=== PATIENT | female | born 1970 | race American Indian/Alaskan Native ===

== ENCOUNTER 2018-10-18 16:02 | Emergency (ER) | payer MEDICARE ==
[2018-10-18 18:46] LABS: Basophils # (Auto) 0.1 K/mm3 (0.0-0.1); Basophils % (Auto) 0.7 % (0.0-1.8); Eosinophils # (Auto) 0.1 K/mm3 (0.0-0.4); Eosinophils % (Auto) 1.6 % (0.0-4.3); Hematocrit 35.8 % (30.3-42.9); Hemoglobin 11.6 gm/dl (10.1-14.3); Lymphocytes # (Auto) 1.7 K/mm3 (1.2-5.4); Lymphocytes % (Auto) 19.8 % (13.4-35.0); Mean Corpuscular HGB Conc 33 % (30-34); Mean Corpuscular Volume 83 fl (79-97); Monocytes # (Auto) 0.3 K/mm3 (0.0-0.8); Monocytes % (Auto) 3.7 % (0.0-7.3); Platelet Count 212 K/mm3 (140-440); Red Blood Count 4.29 M/mm3 (3.65-5.03); Red Cell Distribution Width 15.9 % (13.2-15.2)
[2018-10-18 18:56] LABS: BUN/Creatinine Ratio 13; Blood Urea Nitrogen 13 mg/dL (7-17); Calcium 9.2 mg/dL (8.4-10.2); Hemolysis Index 0
--- NOTE | 2018-10-18 20:35 | XRay Report ---
FINAL REPORT EXAM: XR CHEST ROUTINE 2V HISTORY: chest pain, shortness of breath TECHNIQUE: Chest two views PA and lateral PRIORS: None. FINDINGS: Cardiac silhouette is enlarged. There is single lead pacemaker present lead wire intact. No focal pulmonary infiltrate identified. No pleural fluid collection seen. The pulmonary vasculatur e is unremarkable. IMPRESSION: Mild cardiomegaly No acute pulmonary findings
--- NOTE | 2018-10-18 20:43 | Emergency Department Report ---
ED Shortness of Breath HPI - General Chief Complaint: Chest Pain Stated Complaint: CHEST PAIN/SOB Time Seen by Provider: 10/18/18 20:10 Source: patient Mode of arrival: Ambulatory Limitations: No Limitations - History of Present Illness Initial Comments: This is a 48-year-old female with history of cardiomyopathy with defibrillator placement due to cardiac arrest 5 years ago. Patient states she attends cardiac rehabilitation approximately once a week in which she does light exercises. Patient states after leaving rehabilitation today, approximately 6 hours ago, the patient reports onset of shortness of breath and mild chest pain. Patient admits that she "always" has chest pain and shortness of breath. Patient states she is unable to walk short distances without becoming dyspneic. Patient states today's session at rehabilitation was no more strenuous than in the past. Patient also states that her shortness of breath today was not out of proportion to what she normally experiences. At this time patient denies any chest pain or shortness of breath. Patient is also here with her 5-year-old son that she had to pick and shovel man from school for fever. Patient states she believes that because she was rushing to get to him after cardiac rehab, this may have caused her symptoms. Complaint: shortness of breath, chest pain -: hour(s) (6) Severity: moderate Consistency: now resolved Improves With: rest Worsens With: exertion Known History Of: congestive heart failure Associated Symptoms: chest pain Treatments Prior to Arrival: none - Related Data Home Medications Medication Instructions Recorded Confirmed Last Taken Labetalol PO BID 08/24/15 08/24/15 Unknown Lisinopril PO BID 08/24/15 08/24/15 Unknown metFORMIN [Glucophage] PO BID 08/24/15 08/24/15 Unknown oxyCODONE PO UNK PRN 08/24/15 08/24/15 Unknown Allergies Allergy/AdvReac Type Severity Reaction Status Date / Time Penicillins Allergy Unknown Verified 10/18/18 16:27 ED Review of Systems ROS: Stated complaint: CHEST PAIN/SOB Other details as noted in HPI Comment: All other systems reviewed and negative Constitutional: denies: chills, fever Respiratory: shortness of breath. denies: cough Cardiovascular: denies: chest pain Musculoskeletal: other (denies lower extremity edema) ED Past Medical Hx - Past Medical History Previous Medical History?: Yes Hx Hypertension: Yes Hx Heart Attack/AMI: Yes (2012, 2013) Hx Congestive Heart Failure: Yes Hx Diabetes: Yes - Surgical History Past Surgical History?: Yes Hx Internal Defibrillator: Yes (2013) Additional Surgical History: - Social History Smoking Status: Former Smoker Substance Use Type: None - Medications Home Medications: Home Medications Medication Instructions Recorded Confirmed Last Taken Type Labetalol PO BID 08/24/15 08/24/15 Unknown History Lisinopril PO BID 08/24/15 08/24/15 Unknown History metFORMIN [Glucophage] PO BID 08/24/15 08/24/15 Unknown History oxyCODONE PO UNK PRN 08/24/15 08/24/15 Unknown History ED Physical Exam - General Limitations: No Limitations General appearance: alert, in no apparent distress - Head Head exam: Present: atraumatic, normocephalic - Eye Eye exam: Present: normal appearance - ENT ENT exam: Present: mucous membranes moist - Neck Neck exam: Present: normal inspection - Respiratory Respiratory exam: Present: normal lung sounds bilaterally. Absent: respiratory distress, wheezes, rales - Cardiovascular Cardiovascular Exam: Present: regular rate, normal rhythm - GI/Abdominal GI/Abdominal exam: Present: soft. Absent: distended, tenderness - Extremities Exam Extremities exam: Absent: pedal edema, calf tenderness - Neurological Exam Neurological exam: Present: alert, oriented X3 - Psychiatric Psychiatric exam: Present: normal affect, normal mood - Skin Skin exam: Present: warm, dry, intact, normal color ED Course Vital Signs 10/18/18 10/18/18 16:27 20:52 Temperature 98.4 F Pulse Rate 98 H 94 H Respiratory 20 19 Rate Blood Pressure 178/128 Blood Pressure 186/121 [Left] O2 Sat by Pulse 96 100 Oximetry ED Medical Decision Making - Lab Data Result diagrams: 10/18/18 18:06 10/18/18 18:06 - EKG Data -: EKG Interpreted by Me EKG shows normal: sinus rhythm, axis, intervals, QRS complexes Rate: normal - EKG Data Interpretation: nonspecific ST-T wave jose - Radiology Data Radiology results: report reviewed, image reviewed - Medical Decision Making O2 sats normal. Chest x-ray negative for pulmonary edema or effusion. EKG unremarkable, troponin negative 2. Patient is hypertensive, however, states that she has missed her nighttime dose of blood pressure medications. Patient states she will take them when she gets home. Currently in no respiratory distress, patient comfortable. Will discharge at this time. Return precautions given. Outpatient follow-up advised. - Differential Diagnosis pulm edema, ACS, pneumonia Critical care attestation.: If time is entered above; I have spent that time in minutes in the direct care of this critically ill patient, excluding procedure time. ED Disposition Clinical Impression: Dyspnea Disposition: DC-01 TO HOME OR SELFCARE Is pt being admited?: No Condition: Stable Instructions: Dyspnea (ED) Referrals: CAMMIE CHACON MD [Primary Care Provider] - 3-5 Days Time of Disposition: 22:06
[2018-10-18 20:53] VITALS: BP 186/121
== END 2018-10-18 22:33 | disposition home or self-care (01) ==
LOC: ED 16:02
DX: R06.00 Dyspnea, unspecified (principal); I25.2 Old myocardial infarction; I11.0 Hypertensive heart disease with heart failure; I50.9 Heart failure, unspecified; E11.9 Type 2 diabetes mellitus without complications; Z79.84 Long term (current) use of oral hypoglycemic drugs; Z95.810 Presence of automatic (implantable) cardiac defibrillator; Z86.79 Personal history of other diseases of the circulatory system; Z88.0 Allergy status to penicillin
CPT/HCPCS: 36415; 71046; 80048; 84484; 84703; 85025; 93005; 93010

== ENCOUNTER 2019-12-09 06:47 | Day surgery (SDC) | payer MEDICARE ==
[2019-12-09] MEDS ORDERED: SODIUM CHLORIDE 0.9% 1000 ML 1,000 ML IV SCH (07:30)
[2019-12-09] MEDS ORDERED: LIDOCAINE MPF (2%) 20 MG/1 ML VIAL 5 ML ONE (07:42)
[2019-12-09] MEDS ORDERED: propofoL 200 MG/20 ML VIAL IV ONE (07:43)
[2019-12-09] MEDS ORDERED: fentaNYL 100 MCG/2 ML INJ ONE (07:43)
--- NOTE | 2019-12-09 07:56 | Anesthesia Consultation ---
Anesthesia Consult and Med Hx Date of service: 12/09/19 - Airway Anesthetic Teeth Evaluation: Partials (upper) ROM Head & Neck: Adequate Mental/Hyoid Distance: Adequate Mallampati Class: Class II Intubation Access Assessment: Probably Good - Pre-Operative Health Status ASA Pre-Surgery Classification: ASA3 Proposed Anesthetic Plan: MAC - Cardiovascular System Hx Hypertension: Yes Hx Coronary Artery Disease: No (Ischemic cardiomyopathy EF-35%) Hx Heart Attack/AMI: Yes (2012, 2013) Hx Internal Defibrillator: Yes - Gastrointestinal Hx Ulcer: No (bloating, abdominal pain) - Endocrine Hx Non-Insulin Dependent Diabetes: Yes
--- NOTE | 2019-12-09 07:58 | Anesthesia Day of Surgery ---
Anesthesia Day of Surgery - Day of Surgery Patient Examined: Yes Patient H&P Reviewed: Yes Patient is NPO: Yes Beta Blockers: Yes Cardiac Clearance: Yes
[2019-12-09] MEDS ORDERED: carvediloL 25 MG TAB PO SCH (08:30)
--- NOTE | 2019-12-09 09:09 | Short Stay Summary ---
Short Stay Documentation Date of service: 12/09/19 Narrative H&P: The patient presents for EGD to evaluate abdominal pain and for her first screening colonoscopy. - History Past Medical History: arrhythmia, diabetes, heart failure Past Surgical History: Other (Defibrillator) Social history: no significant social history - Allergies and Medications Current Medications: Allergies lisinopril Allergy (Intermediate, Verified 12/09/19 07:28) Swelling Penicillins Allergy (Verified 10/18/18 16:27) Unknown Home Medications Medication Instructions Recorded Confirmed Last Taken Type Basaglar Kwikpen U-100 5 units SUB-Q HS 12/09/19 12/09/19 12/08/19 History Bumetanide 5 mg PO BID 12/09/19 12/09/19 12/08/19 History carvediloL 25 mg PO BID 12/09/19 12/09/19 12/09/19 History Active Medications Sodium Chloride (Nacl 0.9% 1000 Ml) 1,000 mls @ 50 mls/hr IV DIRECT SRI Last Admin: 12/09/19 08:13 Dose: 50 mls/hr Documented by: - Physical exam General appearance: no acute distress, well-nourished Integumentary: no rash, no growths, no abnormal pigmentation HEENT: Atraumatic, PERRLA, EOMI, Mucous membr. moist/pink Lungs: Clear to auscultation, Normal air movement Breasts: deferred Heart: Regular rate, Normal S1, Normal S2, No murmurs Gastrointestinal: normoactive bowel sounds, no tenderness, no distended, no masses, no guarding, no organomegaly Female Genitourinary: deferred Rectal Exam: deferred Extremities: no ischemia, pulses intact, pulses symmetrical, No edema, normal temperature, normal color, Full ROM Neurological: Normal gait, Normal speech, Strength at 5/5 X4 ext, Normal tone, Sensation intact, Cranial nerves 3-12 NL - Brief post op/procedure progress note Date of procedure: 12/09/19 Findings: see dictations Estimated blood loss: none Pathology: list (1 stomach antrum biopsies 2. two sigmoid colon polyps) Specimen disposition: to lab Condition: stable - Disposition Condition at discharge: Good Disposition: DC-01 TO HOME OR SELFCARE - Discharge Diagnoses (1) Epigastric pain Status: Acute (2) Diabetic gastroparesis Status: Acute (3) Colon cancer screening Status: Acute Short Stay Discharge Plan Activity: other (No driving for 24 hours) Weight Bearing Status: Full Weight Bearing Diet: diabetic, other (gastroparesis diet) Follow up with: CAMMIE CHACON MD [Primary Care Provider] - 7 Days
--- NOTE | 2019-12-09 09:13 | Operative Report ---
Operative Report Operative Report: Date of procedure: 12/09/2019 Procedure: Esophagogastroduodenoscopy with antral biopsies for H. pylori testing Preprocedure diagnosis: Epigastric pain. History of diabetic gastroparesis. Rule out peptic ulcer disease, gastric outlet obstruction. Post procedure diagnosis: Erosive antral gastritis-moderate. No evidence of gastric outlet obstruction. Endoscopist: Dr. Larry Anesthesia: Monitored anesthesia care per anesthesia department Medications: Propofol per anesthesia Estimated blood loss: 0 After careful discussion of the nature and purpose of the procedure as well as details the technique risks benefits and alternatives consent was obtained. The patient was placed in the left lateral decubitus position and medicated per anesthesia. The tip of the [employer] EQ 570 video scope was passed per orum under direct vision into the esophagus and advanced into the stomach and descending duodenum. The descending duodenum the duodenal bulb and pylorus were symmetrical and normal. The scope was withdrawn into the stomach and the stomach then gently insufflated with air. The antrum revealed patchy erythema and scattered punctate erosions in the prepyloric area. 4 biopsies were taken for histology and H. pylori testing. The stomach was further insufflated and the scope was then retroflexed and partially withdrawn. The cardia, fundus, and body of the stomach were within normal limits and easily distensible.The scope was then withdrawn in the forward position. The esophagogastric junction was at 40 cm. The esophageal body was normal throughout. The procedure was was well tolerated and the patient was observed in recovery. Impressions: Moderate prepyloric erosive gastritis. No evidence of outlet obstruction or deep ulcers. Plan: Await results of histology. The patient will call the office in 1 week. Continue present therapy pending biopsy results. Electronically signed: Joss Larry MD
--- NOTE | 2019-12-09 09:15 | Operative Report ---
Operative Report Operative Report: Date of procedure: 12/09/2019 Preprocedure diagnosis: Screening colonoscopy, no prior studies. Average risk. Post procedure diagnosis: 2 small sigmoid colon polyps. Few left colon diverticula. Procedure: Colonoscopy to the cecum with cold snare polypectomy x2 Endoscopist: Dr. Larry Anesthesia: Monitored anesthesia care per anesthesia department Estimated blood loss: 0 Medications: Monitored anesthesia care. See separate report by anesthesia for details. After careful discussion of the nature and purpose of the procedure as well as details of the technique risks benefits and alternatives the patient gave consent. Please see recent history and physical from the office. The patient was placed in the left lateral decubitus position and medicated per anesthesia. A rectal exam was performed sphincter tone was normal there were no masses palpable. The [employer] 570 scope was passed transanally and advanced under continuous direct vision without difficulty to the cecum. The colon was well prepared. The cecum was normal. The ascending colon was normal and on forward and retroflexed views. The transverse colon was normal. The descending colon was normal. There were a few scattered diverticula in the sigmoid colon and 2 semi- pedunculated polyps, 6 to 7 mm in size. Both polyps were removed with cold snare resection and retrieved via suction. The rectum was normal on forward and retroflexed views. The procedure was well-tolerated overall and the patient was observed in recovery. Conclusions: Few sigmoid diverticula. 2 small sigmoid polyps.. Plan: Await pathology. Follow-up colonoscopy in 5 years. The patient will call the office in 10 days regarding the pathology report. Signed electronically: Joss Larry M.D.
[2019-12-09 10:27] VITALS: BP 129/83
--- NOTE | 2019-12-09 12:07 | Post Anesthesia Evaluation ---
- Post Anesthesia Evaluation Patient Participated: Yes Airway Patent: Yes Stable Respiratory Function: Yes Nausea/Vomiting: No Temp > 96.8F: Yes Pain Manageable: Yes Adequeate Hydration: Yes Anesthesia Complications: No
== END 2019-12-09 06:48 | disposition home or self-care (01) ==
LOC: GIO 06:47
PROVIDERS: ATTEND Internal Medicine Gastroenterology
DX: Z12.11 Encounter for screening for malignant neoplasm of colon (principal); K57.30 Diverticulosis of large intestine without perforation or abscess without bleeding; D12.5 Benign neoplasm of sigmoid colon; K31.89 Other diseases of stomach and duodenum; K29.70 Gastritis, unspecified, without bleeding; E11.43 Type 2 diabetes mellitus with diabetic autonomic (poly)neuropathy; I11.0 Hypertensive heart disease with heart failure; I50.9 Heart failure, unspecified; Z90.49 Acquired absence of other specified parts of digestive tract; Z90.710 Acquired absence of both cervix and uterus; Z98.890 Other specified postprocedural states; Z88.0 Allergy status to penicillin; Z79.899 Other long term (current) drug therapy; Z88.8 Allergy status to other drugs, medicaments and biological substances
CPT/HCPCS: 43239; 45385; 82962; 88305; 88342; J2704; J3010; J7030